=== PATIENT | male | born 1995 | race Caucasian/White ===

== ENCOUNTER 2024-02-02 10:30 | Emergency (ER) | payer SELFPAY ==
--- NOTE | 2024-02-02 10:36 | XRR_ITS ---
PROCEDURE INFORMATION: Exam: XR Chest Exam date and time: 02/02/2024 11:20 AM Age: 28 years old Clinical indication: Cough TECHNIQUE: Imaging protocol: Radiologic exam of the chest. Views: 1 view. COMPARISON: No relevant prior studies available. FINDINGS: Lungs: Unremarkable. No consolidation. Pleural spaces: Unremarkable. No pleural effusion. No pneumothorax. Heart/Mediastinum: Unremarkable. No cardiomegaly. Bones/joints: Unremarkable. XR/XR chest 1V portable [id number] IMPRESSION: No acute findings.
[2024-02-02 10:40] VITALS: BP 145/85; PULSE 100; RESP 18; TEMP 36.7; O2SAT 94; BMI 40.6
--- NOTE | 2024-02-02 12:14 | W.ED.URI ---
HPI - URI/Sore Throat General: Chief Complaint: Upper Respiratory Infection Stated Complaint: cough Time Seen by Provider: 02/02/24 11:59 Source: patient and family Mode of arrival: ambulatory Limitations: no limitations History of Present Illness: Patient is a 28-year-old male who presents to the ED today with a complaint of a cough for the last 2 weeks. States cough is nonproductive, dry, and irritative. He is not having any chest pain, shortness of breath, difficulty breathing. No trouble swallowing a foreign body sensation. He is having hoarseness. Has been using cough lozenges at home as well as Vicks. No fevers. Vital signs are stable upon arrival. Patient is an everyday smoker. MD elicited complaint: cough and other (hoarseness) Onset (ago): week(s) Consistency: constant Severity: moderate Description of mucous: clear Able to tolerate fluids by mouth: Yes Exacerbating factors: nothing Relieving factors: nothing Associated symptoms: Deny chills, chest pain, diarrhea, ear or mastoid pain, fever(s), headache(s), nasal congestion, sinus pain or vomiting Treatments prior to arrival: cold medicine Related Data Previous Rx's Medication Instructions Recorded benzonatate 100 mg capsule 100 mg PO TID PRN cough #14 caps 02/02/24 Allergies Allergy/AdvReac Type Severity Reaction Status Date / Time Penicillins Allergy Unknown Verified 02/02/24 10:40 Review of Systems Const: Denies: fever(s), chills, body aches, fatigue or malaise ENMT: Reports: hoarseness; Denies: throat pain, uvular edema, enlarged tonsils, odynophagia, mouth pain, swelling of lips/tongue, oral sores, ear or mastoid pain, nasal discharge, nasal congestion or sinus pain Card: Denies: chest pain Resp: Reports: non-productive cough; Denies: dyspnea, wheezing, stridor or hemoptysis GI: Denies: vomiting or diarrhea Musc: Denies: neck pain, back pain, extremity pain, extremity swelling, joint pain or joint swelling Neuro: Denies: headache(s) or dizziness Physical Exam Const: COMMON NORMALS: no acute distress, patient oriented x3, no limitations, alert and well nourished GENERAL APPEARANCE: cooperative NUTRITIONAL APPEARANCE: obese morbidly obese (BMI 40.7) HENMT: THROAT: posterior oropharynx normal and tonsils normal; no uvular edema Resp: COMMON NORMALS: normal respiratory effort and clear to auscultation bilaterally AUSCULTATION: clear to auscultation bilaterally Cardio: COMMON NORMALS: regular rate and regular rhythm RATE: regular rate RHYTHM: regular rhythm Neuro: COMMON NORMALS: patient oriented x3 SENSORIUM/ORIENTATION: Yes alert Course Vital Signs: Vital signs: Vital Signs Temperature 98.0 F 02/02/24 10:40 Pulse Rate 100 02/02/24 10:40 Respiratory Rate 18 02/02/24 10:40 Blood Pressure 145/85 02/02/24 10:40 Pulse Oximetry 94 02/02/24 10:40 Oxygen Delivery Me thod Room Air 02/02/24 10:40 MDM - URI/Sore Throat Medical Decision Making CXR preliminary report is unremarkable. Vital signs are stable. Discussed conservative therapies to help with cough including honey, lemon, humidifier, Vicks chest rub, continue throat lozenges. Will try Ambrosio Zaman to see if this gives him any relief. Recommend follow-up with primary care in 1 to 2 weeks if symptoms or not improving. Return to ED precautions given. Differential Diagnosis Likely viral infection and bronchitis Medical Records I reviewed the patient's medical records. XR interpretation done by ED provider, pending radiology final review Discharge Plan Discharge Patient Disposition: Home Clinical Impression: Viral upper respiratory tract infection with cough Condition: Stable Prescriptions: New benzonatate 100 mg capsule 100 mg PO TID PRN (Reason: cough) Qty: 14 0RF Rx Instructions: Can take 1-2 tabs up to TID. Max 600mg/day. Discharge Orders: Discharge ED (Routine); Ordered 02/02/24 Ordered By: Senait Michel Patient Instructions: Acute Cough (ED) Coding Level of Care Code ED [employer] for Tayla Worthy
[2024-02-02 12:25] VITALS: BP 154/64; PULSE 86; O2SAT 96
[2024-02-02 12:55] VITALS: BP 130/67; PULSE 86; O2SAT 94
== END 2024-02-02 12:45 | disposition home or self-care (01) ==
PROVIDERS: Emergency Provider Physician Assistant
DX: J06.9 Acute upper respiratory infection, unspecified (principal)
CPT/HCPCS: 71045; 99283